=== PATIENT | female | born 1955 | race Caucasian/White ===

== ENCOUNTER 2023-03-18 11:07 | Outpatient (CLI) | payer MEDICARE, OTHER, SELFPAY ==
--- NOTE | ~2023-03-18 | XR_ITS ---
EXAMINATION: XR ankle RT 2V, XR foot RT 2V DATE: 03/18/2023 11:29 INDICATION: Lateral right foot and ankle pain post injury TECHNIQUE: 1. Anteroposterior and lateral view of the right ankle were obtained. 2. Dorsoplantar and lateral views of the right foot were obtained. COMPARISON: None. FINDINGS: Alignment of the foot and ankle is normal. Possible nondisplaced flake-like cortical avulsion fractur e at the distal tip at the lateral malleolus. No other lesions suspicious for fracture identified. 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 Enthesophytes at the calcaneal origin of the plantar aponeurosis and more prom inently at the distal Achilles tendon. No ankle joint effusion. Soft tissue swelling about the latera l malleolus. IMPRESSION: 1. Possible nondisplaced small flake-like cortical avulsion fracture at the distal tip of the lateral malleolus. Reviewed, dictated and finalized at location A. IMPRESSION: 1. Possible nondisplaced small flake-like cortical avulsion fracture at the dis ge tip of the lateral malleolus.
== END 2023-03-18 11:08 | disposition home or self-care (01) ==
LOC: ANHBWCLAB 11:13
PROVIDERS: PCP Nurse Practitioner Adult Health; Visit Provider Nurse Practitioner Adult Health
DX: S99.911A Unspecified injury of right ankle, initial encounter (principal); I10 Essential (primary) hypertension; X58.XXXA Exposure to other specified factors, initial encounter
CPT/HCPCS: 73600; 73620

== ENCOUNTER 2024-02-19 10:48 | Emergency (ER) | payer MEDICARE, OTHER, SELFPAY ==
[2024-02-19 10:57] VITALS: BP 152/84; PULSE 82; RESP 16; TEMP 36.4; O2SAT 97
[2024-02-19 11:03] VITALS: BP 152/84; PULSE 82; RESP 16; TEMP 36.4; O2SAT 97
--- NOTE | 2024-02-19 11:10 | ED.GENADULT ---
HPI - General Adult General Chief complaint: Skin/Abscess/Foreign Body Stated complaint: hives all over Time Seen by Provider: 02/19/24 11:10 Source: patient, RN notes reviewed and old records reviewed Mode of arrival: ambulatory Limitations: no limitations History of Present Illness HPI narrative: 68-year-old female to [facility] for complaint of rash for 2 days. Rash appears underneath bilateral breasts, bilateral ACs, bilateral groin. Patient denies any new soaps or other body products, new potential environment irritants, pets, seasonal allergies, Fever, recent illness, shortness of breath. Respirations even nonlabored. Patient able to tolerate fluids by mouth. Patient in no acute distress. Related Data Allergies Allergy/AdvReac Type Severity Reaction Status Date / Time cephalexin Allergy Intermediate Itching Verified 02/19/24 11:02 levofloxacin Allergy Unknown Itching Verified 02/19/24 11:02 Penicillins Allergy Unknown itching Verified 02/19/24 11:02 Review of Systems Review of Systems: All systems reviewed & are unremarkable except as noted in HPI and below Constitutional: Constitutional: Reports no additional constitutional complaints Eyes: Eyes: Reports no additional eye complaints ENT: Reports system reviewed and no additional complaints, except as documented Cardiovascular: Cardiovascular: Reports no additional cardiovascular complaints, Denies chest pain and Denies dyspnea Respiratory: Respiratory: Reports no additional respiratory complaints, Denies cough and Denies dyspnea Musculoskeletal: Musculoskeletal: Reports no additional musculoskeletal complaints Integumentary/Breasts: Skin/Breast: Reports as per HPI and Reports rash Comments: Present below bilateral breasts, in bilateral ACs, bilateral groin, in between buttocks per patient Neurologic: Reports system reviewed and no additional complaints, except as documented Psychiatric: Psychiatric: Reports no additional psychiatric complaints [facility] Past Medical History Medical History (Updated 02/20/24 @ 00:01 by Ramiro Raymundo) Hypertension Surgical History Surgical History (Updated 11/12/20 @ 13:52 by Gabbi Flor CMA) Hx of tonsillectomy Family History Family History (Updated 03/11/22 @ 15:07 by Kelly Pennington MA) Sibling Carcinoma of colon Asthma Cancer Mother Alcohol abuse Hypertension Grandparent Hypertension Cerebrovascular accident Mad cow disease (human variant) Father Mad cow disease (human variant) Social History Social History (Updated 03/17/23 @ 14:15 by Kelly Pennington MA) Smoking packs per day: 0.5 Smoking cigarettes per day: 10.0 Years smoked: 10 Smoking pack-years: 5.00 Smoking status: Former smoker Second hand tobacco smoke exposure: No Alcohol intake: current Substance use: never Lack of Transportation: No Lack of Food: Never True Current Housing: I Have Housing Concerned About Future Housing: No Difficulty Paying Gas/Electric Bills: No Difficulty Paying for Meds: No Currently Unemployed: No Education: High School Diploma/GED Difficulty w/ Childcare or Family Care: No Living arrangements: alone Occupation/Education: retired Gender identity (if verbalized by the patient): Female Agree to blood products: Yes Comments At the time of my signature, I reviewed and agree with the nursing past medical, surgical, social, and family history. There is no relevant family history pertinent to the patient complaint. Exam Const: General: cooperative, healthy appearing, comfortable, no acute distress, alert and well nourished Nutritional Appearance: well nourished Orientation/consciousness: patient oriented x3 Limitations: no limitations HENMT: Head: normal to inspection Ears: external ears normal Face/Nose/Sinus: Normal external nose present, Normal nares present, normal facial exam, No erythema and No edema Face and sinus: normal facia
== END 2024-02-19 11:47 | disposition home or self-care (01) ==
PROVIDERS: Emergency Provider Nurse Practitioner Family; PCP Nurse Practitioner Adult Health
DX: L30.4 Erythema intertrigo (principal); Z87.891 Personal history of nicotine dependence; I10 Essential (primary) hypertension
CPT/HCPCS: 99213; G0463

== ENCOUNTER 2024-04-20 12:58 | Emergency (ER) | payer OTHER, MEDICARE, SELFPAY ==
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
[2024-04-20 13:21] VITALS: BP 153/90; PULSE 90; RESP 18; TEMP 36.6; O2SAT 97
== END 2024-04-20 13:40 | disposition short-term general hospital (02) ==
LOC: EXPBETH 13:03
PROVIDERS: Emergency Provider Nurse Practitioner Family; PCP Nurse Practitioner Adult Health
DX: M54.2 Cervicalgia (principal); M79.671 Pain in right foot; M25.561 Pain in right knee; R10.30 Lower abdominal pain, unspecified; M54.50 Low back pain, unspecified; I10 Essential (primary) hypertension; Z87.891 Personal history of nicotine dependence
CPT/HCPCS: 99215; G0463

== ENCOUNTER 2024-11-01 09:37 | Outpatient (CLI) | payer MEDICARE, OTHER, SELFPAY ==
--- OUTSIDE RECORDS SUMMARY | 2024-11-01 10:25 | XMS_ITS | Referral Summary ---
Author Organization [facility] Address [address] [place] [address] Care Team Providers Care Manager User Experience Name Role Phone Linda Mcmahan NP Primary Care Provider [phone] Allergies Active Allergy Reactions Criticality Noted Date Comments Cephalexin Hives Medium Levofloxacin Joint pain Low 08/09/2018 Milk Shortness of breath High 12/12/2020 Penicillins Hives Medium 08/09/2018 Medications valACYclovir (VALTREX) 1 gram tablet TAKE 1 TABLET BY MOUTH TWICE DAILY 60 tablet 0 Active Additional Information Patient taking differently: As needed, Reported on 12/12/2020 losartan (COZAAR) 25 mg tablet Take 1 tablet (25 mg total) by mouth daily 30 tablet 11 1 Active prednisoLONE acetate (PRED FORTE) 1 % ophthalmic suspension Shake liquid and instill one drop left eye daily. 5 mL 2 Active Active Problems Problem Noted Date Diagnosed Date Palpitations 12/13/2020 Assessment & Plan (12/13/2020 8:22 AM CDT): I will further investigate patient's palpitations with echocardiography. With normal ECG, normal exam, no family history of sudden , no symptoms to suggest coronary ischemia or heart failure, if the patient has normal cardiac structure and performance this will put her in a very safe risk group and conservative management would be suggested. Essential hypertension 12/13/2020 Near syncope 12/13/2020 Assessment & Plan (12/13/2020 9:05 AM CDT): Patient's lightheadedness may have represented near-syncope likely from a neurocardiogenic origin. I am encouraged continued fluid intake. We will obtain echocardiography and Cardiolite treadmill stress testing. If she has normal cardiac structure and performance in the setting of a normal ECG, places her in a very safe risk group. Conservative management would be suggested. MVP (mitral valve prolapse) 12/13/2020 Assessment & Plan (12/13/2020 9:06 AM CDT): Patient has a reported account of mitral valve prolapse diagnosed by auscultation of her primary care provider historically. I do not appreciate this on exam. Echocardiography will offer additional information. Former smoker 12/13/2020 Assessment & Plan (12/13/2020 9:06 AM CDT): Patient has not smoked in greater than 30 years. Hyperlipidemia 12/17/2013 Overview (11/07/2016): HYPERLIPIDEMIA NEC/NOS Assessment & Plan (12/13/2020 9:07 AM CDT): Patient's LDL cholesterol was 120 mg/dL. With her circumstance in less her glucose reveals a repeating trend, this LDL value is reasonable. To stratify how aggressive to be with her lipids I have suggested calcium scoring if the above testing is normal. Any score other than 0 would suggest an aggressive stands with her cholesterol management. 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 Gender Identity Not on file Sexual Orientation Not on file Last Filed Vital Signs Vital Sign Reading Time Taken Comments Blood Pressure 120/80 01/18/2021 10:21 AM CDT Pulse 91 01/18/2021 10:21 AM CDT Temperature 36.7 C (98 F) 10/22/2020 3:39 PM CDT Respiratory Rate 14 12/13/2020 8:25 AM CDT Oxygen Saturation 94% 01/18/2021 10:21 AM CDT Inhaled Oxygen Concentration - - Weight 99.8 kg (220 lb) 03/24/2023 9:49 AM CDT Height 180.3 cm (5' 11 ) 03/24/2023 9:49 AM CDT Body Mass Index 30.68 03/24/2023 9:49 AM CDT Plan of Treatment Not on file Insurance [facility] MEDICARE MEDICARE FOR LIFE MEDICARE FOR LIFE Care Teams Manager User Experience Relationship Specialty Start Date End Date Linda Mcmahan NP [facility] [place] [address] PCP - General Nurse Practitioner 12/08/23
--- OUTSIDE RECORDS SUMMARY | 2024-11-01 10:25 | XMS_ITS | Clinical Summary ---
Author Organization [facility] Address [address] [place] [address] Care Team Providers Care Podiatric Technician Name Role Phone Linda Mcmahan NP Primary Care Provider [phone] Allergies Active Allergy Reactions Criticality Noted Date [...] an aggressive stands with her cholesterol management. Surgical History Surgery Date Site/Laterality Comments TONSILLECTOMY 08/03/1977 - 08/02/1978 Tonsillectomy TONSILLECTOMY 08/03/1975 - 08/02/1976 Medical History Medical History Date Comments HTN (hypertension) Ventricular tachycardia (HCC) Heart murmur Family History Medical History Relation Name Comments Other Father Mad Cow Disease ; Cause of : Mad Cow Disease Hypertension Mother Hypertension; Other Mother Alive and well; /Tobacco Abuse; /Alcohol Abuse; Glaucoma Paternal Grandfather Stroke Paternal Grandmother Relation Name Status Comments Father Mother Alive Paternal Grandfather Paternal Grandmother Social History Tobacco Use Types Packs/Day Years Used Date Smoking Tobacco: Former Smokeless Tobacco: Never Tobacco Cessation:Counseling Given: Not Answered Alcohol Use Standard Drinks/Week Comments No 0 (1 standard drink = 0.6 oz pur e alcohol) Comments No Sex and Gender Information Value Date Recorded Sex Assigned at Not on file 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 Gender Identity Not on file Sexual Orientation Not on file Obstetrics History Last Filed Vital Signs Vital Sign Reading [...] 03/24/2023 9:49 AM CDT Plan of Treatment Health Maintenance Due Date Last Done Comments Breast Cancer Screening-Mammogram 1955 Colon Cancer Screening-Colonoscopy 1955 Depression Screening 1955 Fall Risk Assessment 1955 Hepatitis C Screening 1955 Osteoporosis Screening-Bone Density Scan 1955 DTaP/Tdap/Td Vaccine (1 - Tdap) 1966 Hepatitis B Screening 1973 Pneumococcal vaccine 65+ (1 of 1 - PCV) 2005 Zoster Vaccine (1 of 2) 2005 Well Visit 65+ 2020 Influenza Vaccine (#1) 2024 Insurance [facility] CLAIMS MEDICARE MEDICARE FOR [facility] MEDICARE [facility] FOR LIFE Care Teams Podiatric Technician Relationship Specialty Start Date End Date Linda Mcmahan NP [facility] [place] [address] PCP - General Nurse Practitioner 12/08/23
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
[2024-11-01 19:54] LABS: Basophils Percent Auto 0.4 % (0.2-1.2); Eosinophils Absolute Auto 0.2 K/mm3 (0-0.3); Eosinophils Percent Auto 1.5 % (0-4.4); Hematocrit 53.8 % (37.0-47.0); Hemoglobin 17.1 g/dL (12.0-15.0); Immature Granulocyte Absolute 0.05 K/mm3 (0.00-0.031); Immature Granulocyte Percent A 0.5 % (0-0.5); Lymphocytes Percent Auto 25.6 % (18.3-44.2); Mean Corpuscular HGB Conc 31.8 g/dl (32-36); Mean Corpuscular Hemoglobin 28.8 pg (26-34); Mean Corpuscular Volume 90.7 fl (80-100); Mean Platelet Volume 11.1 fl (7.4-10.4); Monocytes Absolute Auto 0.8 K/mm3 (0.1-0.6); Monocytes Percent Auto 7.8 % (2.6-8.5); Neutrophils Absolute Auto 6.3 K/mm3 (1.3-6.7); Neutrophils Percent Auto 64.2 % (45.5-73.1); Platelet Count Result 219 k/mm3 (150-375); Red Blood Count 5.93 M/mm3 (4.2-5.4); Red Cell Distribution Width 13.6 % (11.5-14.5); White Blood Count 9.8 K/mm3 (4.5-10.0)
[2024-11-01 20:01] LABS: Alanine Aminotransferase 38 U/L (6-35); Albumin Level 4.7 g/dL (3.5-5.1); Alkaline Phosphatase 109 U/L (38-126); Anion Gap 10 mmol/L (4-12); Aspartate Amino Transferase 47 U/L (14-36); Bilirubin,Total 0.6 mg/dL (0.2-1.3); Blood Urea Nitrogen 17 mg/dL (7-17); Calcium 9.4 mg/dL (8.4-10.2); Carbon Dioxide 27 mmol/L (22-30); Chloride 101 mmol/L (98-107); Cholesterol 253 mg/dL (0-200); Estimated Glomerular Filt Rate > 60; Glucose 117 mg/dL (65-110); HDL Direct 61 mg/dL; Magnesium 2.5 mg/dL (1.6-2.3); Potassium 4.7 mmol/L (3.4-5.0); Sodium 138 mmol/L (137-145); Triglycerides 255 mg/dL (<150)
[2024-11-01 20:21] LABS: LDL Cholesterol Direct 128 mg/dL
== END 2024-11-01 09:38 | disposition home or self-care (01) ==
PROVIDERS: PCP Nurse Practitioner Adult Health; Visit Provider Nurse Practitioner Adult Health
DX: I10 Essential (primary) hypertension (principal)
CPT/HCPCS: 36415; 80053; 80061; 83735; 84443; 85025

== ENCOUNTER 2025-01-02 08:38 | Outpatient (CLI) | payer MEDICARE, OTHER, SELFPAY ==
--- OUTSIDE RECORDS SUMMARY | 2025-01-02 08:49 | XMS_ITS | Continuity of Care Document ---
Author Name [facility] Organization [facility] Care Team Providers Care Meter Repairer Helper Name Role Phone [facility] Unavailable Unavailable Medications Combined list of outpatient medications from Department of Defense and Veterans Affairs facilities.Medications provided include 1) outpatient medications from the last 15 months, and 2) patient-reported medications. Medication Details Route Status Patient Instructions Prescription Expires Prescription Number Last Dispense Date Ordering Provider Order Date Order Qty Source METHYLPREDN ISOLONE (methylpred nisolone), 4 MG, TAB DS PK, ORAL, [employer], 21 ea. DOSE-PACK Cancele d [id number] : 2023 0 Pharmac y Data Transac tion Service Facilit y Social History Combined list of available smoking, tobacco, and other social history from Department of Defense and Veterans Affairs facilities. Social History Type Response Date Comment Sour e This section is an empty social history section. [employer]
--- OUTSIDE RECORDS SUMMARY | 2025-01-02 08:49 | XMS_ITS | Clinical Summary ---
Author Organization PENDING SALE TO [facility] [address] [address] Phone Care Team Providers Care Wool Washer Name Role Phone Linda Mcmahan APRN Primary Care Provider [phone] Allergies Active Allergy Reactions Criticality Noted Date [...] - 10/18/2024 11:59 PM CDT Hospital Encounter [facility] [address] [place] [address] Provider, Not On File Izabel Beaver DO Discharge Disposition: Discharged to home or Selfcare 10/18/2024 Travel 10/17/2024 Travel 10/04/2024 Transcribe Orders [facility] Central Scheduling [address] [place] [address] Provider, Not On File Dizzy [...] 2:20 PM CDT Height 177.8 cm (5' 10) 04/20/2024 2:20 PM CDT Body Mass Index [...] 2005 Zoster Immunization (1 of 2) 2005 SARS-COV-2 Immunization (1 - 2023- season) 2024 Influenza Immunization (Seas on Ended) 2025 Respiratory Syncytial Virus (RSV) Immunization (Adult) (1 - 1-dose 75+ series) 2030 Hepatitis B Immunization Aged Out No longer eligible based on patient's age to complete this topic Human Papillomavirus (HPV) Immunization Aged Out No longer eligible b ased on patient's age to complete this topic [...] Hyperostosis frontalis interna. ORBITS: No acute abnormality. [place] ocular lenses replaced bilaterally. PARANASAL SINUSES AND [...] Gibran Alas M.D. TIFFANI: TIFFANI Report ID: [id number] Reading Location: [id number] Procedure Note Gibran Alas MD - 10/19/2024 [...] Hyperostosis frontalis interna. ORBITS: No acute abnormality. [place] ocular lenses replaced bilaterally. PARANASAL SINUSES AND [...] 8:46 AM - Electronically signed by Gibran NIXON: TIFFANI Report ID: [id number] Reading Location: [place] [id number] IMPRESSION: No acute intracranial process with chronic findings as above. us Not On File Provider IMG MR ORDERABLES Final Res ult from Last 3 Months Insurance MEDICARE Care Teams Wool Washer Relationship Specialty Start Date End Date Linda Mcmahan APRN PCP - General Advanced Practice Nurse 04/20/24
--- OUTSIDE RECORDS SUMMARY | 2025-01-02 08:49 | XMS_ITS | Clinical Summary ---
Author Organization 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
--- OUTSIDE RECORDS SUMMARY | 2025-01-02 08:49 | XMS_ITS | Referral Summary ---
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
[2025-01-02 20:23] LABS: Hematocrit 51.9 % (37.0-47.0); Hemoglobin 16.2 g/dL (12.0-15.0); Mean Corpuscular HGB Conc 31.2 g/dl (32-36); Mean Corpuscular Hemoglobin 28.9 pg (26-34); Mean Corpuscular Volume 92.7 fl (80-100); Mean Platelet Volume 11.1 fl (7.4-10.4); Platelet Count Result 188 k/mm3 (150-375); White Blood Count 7.3 K/mm3 (4.5-10.0)
[2025-01-02 22:36] LABS: Hemoglobin A1C 6.1 % (<5.7)
== END 2025-01-02 08:39 | disposition home or self-care (01) ==
PROVIDERS: PCP Nurse Practitioner Adult Health; Visit Provider Nurse Practitioner Adult Health
DX: R79.89 Other specified abnormal findings of blood chemistry (principal)
CPT/HCPCS: 36415; 83036; 85027